=== PATIENT | female | born 1965 | race Caucasian/White ===

== ENCOUNTER → 2019-12-21 | Outpatient (REF) | payer OTHER | LOC: M LAB REF 18:40 | PROVIDERS: ATTEND Physician Assistant | DX: R21 Rash and other nonspecific skin eruption (principal) ==

== ENCOUNTER → 2020-09-06 | Outpatient (REF) | payer OTHER | LOC: M LAB REF 18:29 | PROVIDERS: ATTEND Physician Assistant | DX: D22.39 Melanocytic nevi of other parts of face (principal) ==

== ENCOUNTER → 2024-06-24 | Outpatient (CLI) | payer OTHER ==
[2024-06-24 14:03] LABS: APPEARANCE, URINE CLEAR (CLEAR); BACTERIA, URINE AUTO NEGATIVE (NEGATIVE); BILIRUBIN, URINE AUTO NEGATIVE (NEGATIVE); BLOOD, URINE BLOOD NEGATIVE (NEGATIVE); COLOR, URINE STRAW (YELLOW); GLUCOSE, URINE (UA) AUTO NEGATIVE (NEGATIVE); KETONE, URINE AUTO NEGATIVE (NEGATIVE); LEUKOCYTE ESTERASE, URINE AUTO NEGATIVE (NEGATIVE); NITRITE, URINE AUTO NEGATIVE (NEGATIVE); PROTEIN, URINE AUTO NEGATIVE (NEGATIVE); RBC, URINE AUTO 0 /HPF (0-3); SPECIFIC GRAVITY URINE AUTO 1.005 (1.002-1.035); SQUAMOUS EPITHELIAL CELL UR AU 0 /HPF (0-6); UROBILINOGEN, URINE AUTO 0.2 mg/dL (0.0-2.0); WBC, URINE AUTO 0 /HPF (0-3)
[2024-06-24 14:34] LABS: CALCIUM LEVEL 9.3 MG/DL (8.5-10.1); CREATININE FOR GFR 1.02 MG/DL (0.55-1.30); GLOMERULAR FILTRATION RATE 63.4 (>51); POTASSIUM SERUM 4.7 MMOL/L (3.5-5.1)
[2024-06-25 13:32] LABS: CANDIDA ALBICANS NAA NOT DETECTED (NOT DETECTED); CANDIDA GLABRATA NAA NOT DETECTED (NOT DETECTED); TRICH VAG BY NAA NOT DETECTED (NOT DETECTED)
[2024-06-25 14:07] LABS: BVAB 2 NEGATIVE (NEGATIVE)
[2024-06-25 14:49] LABS: CHLAMYDIA TRACHOMATIS NAA NOT DETECTED (NOT DETECTED); Neisseria gonorrhoeae NAA NOT DETECTED (NOT DETECTED)
== END ==
LOC: M PLALAB 10:58
PROVIDERS: ATTEND Specialist
DX: R31.0 Gross hematuria (principal)